=== PATIENT | female | born 1975 | race Caucasian/White ===

== ENCOUNTER 2016-04-03 15:30 | Emergency (ER) | payer OTHER ==
[2016-04-03] MEDS ORDERED: PROPARACAINE HCL 0.5% 300 GTTS/BOT SOLN.DROP ONE (15:46)
== END 2016-04-03 16:30 | disposition home or self-care (01) ==
LOC: ED 15:30
DX: H18.823 Corneal disorder due to contact lens, bilateral (principal); F17.210 Nicotine dependence, cigarettes, uncomplicated
CPT/HCPCS: 99283; 99282; A9270